=== PATIENT | male | born 1990 | race Caucasian/White ===

== ENCOUNTER 2020-09-11 18:28 | Emergency (ER) | payer MEDICAID ==
[~2020-09-11] VITALS: Ht 180.3 cm; Wt 86.4 kg
[2020-09-11] MEDS ORDERED: LORazepam 1 MG TABLET PO ONE (20:30)
[2020-09-11 23:37] VITALS: BP 143/115
== END 2020-09-11 23:37 | disposition home or self-care (01) ==
LOC: EMS 18:32
DX: R45.851 Suicidal ideations (principal); F15.90 Other stimulant use, unspecified, uncomplicated
CPT/HCPCS: 99284; Z7502; Z7610